=== PATIENT | female | born 1935 | race Caucasian/White ===

== ENCOUNTER → 2017-09-06 | Outpatient (CLI) | payer MEDICARE ==
[~2017-09-06] MED LIST: ASPI-630 PO; CHOL100013 PO; GADOBUTROL 10 MMOL/10 ML VIAL IV ONE; LEVO150T PO; LISI10TA2 PO; SIMV40TA3 PO; VIT1CAPS12 PO
--- NOTE | 2017-09-06 13:00 | RAD ---
MRI Brain with and without contrast History: Headaches for 2 to 3 weeks, tremors Technique: Multiplanar, multi sequential pre and postcontrast MR imaging was performed of the brain. Contrast: 8 cc Gadavist Comparison: None Findings: There is motion degradation. There is no evidence of recent infarct or cytotoxic edema. Ventricular size is proportionate to the sulcal spaces. There is mild supratentorial involutional change somewhat greater of the parietal lobes.There is no significant midline shift, intraaxial mass effect, or focal abnormal extra-axial fluid collection. There is mild T2 and FLAIR hyperintense abnormality of the supratentorial white matter greatest near frontal horns bilaterally. There is no nodular parenchymal or leptomeningeal enhancement. There is preservation of the major intracranial flow-voids at the skull base. The cerebellar tonsils are normal in location. There is no significant abnormality of the pineal gland or pituitary gland. Right maxillary sinus is small. There is [id number] maxillary sinus and mild bilateral ethmoid air cell mucosal thickening. There is probable complex mucous retention cyst near floor of the left maxillary sinus up to 0.9 cm. There has been lens surgery bilaterally. There is minimal fluid of the right mastoid air cells, left mastoid air cells overall aerated. The mastoid air cells are aerated. There is preserved marrow signal of the clivus. There is some fluid associated with the right C1-2 lateral mass articulation. Impression: 1. There is no evidence of recent infarct or abnormal intracranial enhancement. 2. There is mild supratentorial atrophy more greatly affecting the parietal lobes. Minimal T2 and FLAIR hyperintense signal abnormality of the supratentorial parenchyma is probably due to chronic microvascular ischemic disease in a patient this age. 3. There is paranasal sinus mucosal thickening as stated. Electronically signed by: Anival Prabhakar MD (09/06/2017 12:56 PM) [id number]
== END | disposition home or self-care (01) ==
LOC: MRI 10:31
PROVIDERS: ATTEND Internal Medicine
DX: R25.1 Tremor, unspecified (principal); R51 Headache; E78.5 Hyperlipidemia, unspecified; I10 Essential (primary) hypertension; E03.9 Hypothyroidism, unspecified; M81.0 Age-related osteoporosis without current pathological fracture; G31.89 Other specified degenerative diseases of nervous system
CPT/HCPCS: 70553; A9585